=== PATIENT | female | born 1975 | race Caucasian/White ===

== ENCOUNTER 2017-01-14 05:54 | Day surgery (SDC) | payer MEDICAID ==
--- NOTE | 2016-12-16 20:35 | GHP ---
[f rep st] PREOP HISTORY AND PHYSICAL DATE OF ADMISSION: 01/14/2017 DATE OF PLANNED PROCEDURE: 01/14/2017 PLANNED PROCEDURE: Laparoscopic bilateral salpingo-oophorectomy. 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 Patient underwent bilateral mastectomy and breast reconstruction and chemo and radiation. She has been maintained on tamoxifen and did have some bleeding once her cycles did return. She was started on Depot-Lupron to put her i nto medical menopause, which she has been tolerating well. 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 Both are associated with in creased risk of breast and ovarian cancer. Because patient has been tolerating the Lupron well, she is electing to proceed with a laparoscopic bilateral salpingo-oophorectomy. We had extensive discu ssions about the pluses and minuses, including and performing a total laparoscopic hysterectomy at t he same time, because the medications that she is on can increase risk of uterine cancer; however, p joy wishes to proceed just with the laparoscopic BSO at this time. The patient has been properly consented and plans to proceed. PAST MEDICAL HISTORY: Stage IA breast carcinoma, PALB2 positive, BRIP positive, history of cervical dysplasia, chronic hypertension, gastroesophageal reflux disease. MEDICATIONS: Lupron, tamoxifen; which she will discontinue 2 weeks before surgery, olmesartan, tria mterene, hydrochlorothiazide. PAST SURGICAL HISTORY: Discectomy, bilateral mastectomy and breast reconstruction, LEEP excision of the cervix. ALLERGIES: IV contrast. SOCIAL HISTORY: The patient is . 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 She lives with her and their 2 children. She denies tobacco or drug use. She does drink alcohol very rarely. FAMILY MEDICAL HISTORY: Negative. PROGRAM SUPPORT CLERK HISTORY: Menarche age 12. Periods every 28 days, lasting 4-5 days. She is a 3, par a 2, 0-1-2. In 2004, she had a missed . She had a spontaneous , but did not requir e a D and C. In 12/2005, she had a spontaneous vaginal delivery of a 7-pound 1-ounce male at 40 weeks gestation. In 10/2011, she had a spontaneous vaginal delivery of a 6-pound 5-ounce infant . Patient does have a history of an abnormal Pap smear. She had a LEEP excision of her cervix. Ernesto reynaga has had 1 abnormal Pap smear since then, but all of her repeats have been normal since then. She has not had any additional procedures. REVIEW OF SYSTEMS: A 10-point review of systems is negative with exception of the above pertinent p ositives mentioned above. PHYSICAL EXAMINATION: VITAL SIGNS: Stable. Her weight is 141. GENERAL APPEARANCE: No acute dist ress. PSYCHIATRIC: Appropriate affect. Alert and oriented x3. NECK: Supple and mobile. There i s no thyromegaly. LUNGS: Clear to auscultation bilaterally. ABDOMEN: Soft, nondistended, nontend er. EXTREMITIES: Reveal no calf tenderness or edema. PELVIC: Reveals a mobile, midposition uteru s, with no adnexal masses. BREASTS: Status post bilateral breast reconstruction and mastectomy. ASSESSMENT AND PLAN: A 41-year-old, 3, para 2, 0-1-2, with genetic mutations increasing ris k of breast and ovarian cancer. She has already had bilateral mastectomy performed. She is desirin g to undergo laparoscopic bilateral salpingo-oophorectomy, is declining total laparoscopic hysterect henry at this time. Risks and benefits have been extensively reviewed with the patient and patient wells s been properly consented. /[id number]/MODL
[2017-01-14] MEDS ORDERED: LIDOCAINE 1% 5 ML SDV ONE (06:34)
[2017-01-14] MEDS ORDERED: SCOPOLAMINE HYDROBROMIDE 1.5 MG PATCH TD ONE (06:49)
[2017-01-14] MEDS ORDERED: PROPOFOL 200 MG/20 ML VIAL ONE (06:50)
[2017-01-14] MEDS ORDERED: HYDROmorphONE/DILAUDID 2 MG/ML INJ ONE (06:50)
[2017-01-14] MEDS ORDERED: ROCURONIUM 50 MG/5 ML VIAL ONE (06:50)
[2017-01-14] MEDS ORDERED: MIDAZOLAM 2 MG/2 ML VIAL IVP ONE (06:53)
--- NOTE | 2017-01-14 06:57 | PDANEPAE ---
ANE History of Present Illness Ms. Zuluaga is a 41 year old female with PMH of bilateral mastectomy, C6-C7 discetomy, and well controlled hypertension. She is otherwise healthy, NPO appropriate from 23:00 01/13/2017 and has a positive history of PONV. We discussed scopolamine patch preop, and ondansetron and decadron to prevent this. She denies URI last six weeks. She took her losartan and triameteren last 01/13/2017 in AM (exact time she is not sure of). Her HCG is negative. ANE Past Medical History - Cardiovascular History Hx Hypertension: Yes Hx Arrhythmias: No Hx Chest Pain: No Hx Coronary Artery / Peripheral Vascular Disease: No Hx CHF / Valvular Disease: No Hx Palpitations: No - Pulmonary History Hx COPD: No Hx Asthma/Reactive Airway Disease: No Hx Recent Upper Respiratory Infection: No Hx Oxygen in Use at Home: No - Neurologic History Hx Cerebrovascular Accident: No Hx Seizures: No Hx Dementia: No - Endocrine History Hx Diabetes: No - Renal History Hx Renal Disorders: No - Liver History Hx Hepatic Disorders: No - Neurological & Psychiatric Hx Hx Neurological and Psychiatric Disorders: No - Cancer History Hx Cancer: No - Congenital Disorder History Hx Congenital Disorders: No - GI History Hx Gastrointestinal Disorders: No - Chronic Pain History Chronic Pain: No ANE Review of Systems - Exercise capacity METS (RN): 6 METS ANE Patient History - Allergies Allergies/Adverse Reactions: Gadolinium-Containing Contrast Medi Allergy (Severe, Verified 06/29/16 11:25) Other-Enter Comments ibuprofen Allergy (Unknown, Verified 06/29/16 11:25) increases pt BP - Home Medications Home Medications: Cholecalciferol Vit D3 [Vitamin D3 (*)] 4,000 units PO DAILY 04/17/14 [Last Taken 04/18/14] Multivitamins [Multivitamin (*)] 1 each PO DAILY 04/17/14 [Last Taken 04/08/14] Olmesartan Medoxomil 40 mg DAILY 06/29/16 [Last Taken Unknown] Tamoxifen Citrate 1 tab DAILY 06/29/16 [Last Taken 12/30/16] Maxzide 75-50 mg Tab (*) 0.5 tab DAILY 01/01/17 [Last Taken Unknown] - NPO status NPO Since - Liquids (Date): 01/13/17 NPO Since - Liquids (Time): 23:30 NPO Since - Solids (Date): 01/13/17 NPO Since - Solids (Time): 20:40 - Smoking Hx Smoking Status: Never smoked - Family Anes Hx Family Hx Anesthesia Complications: NEG ANE Labs/Vital Signs - Vital Signs Blood Pressure: 124/92 Heart Rate: 67 Respiratory Rate: 16 O2 Sat (%): 97 Height: 152.4 cm Weight: 63.503 kg ANE Physical Exam - Airway Neck exam: FROM, decreased ROM Mallampati Score: Class 1 Mouth exam: poor dentition, small mouth opening - Pulmonary Pulmonary: no respiratory distress - Cardiovascular Cardiovascular: regular rate and rhythym - ASA Status ASA Status: II (limited posterior range of motion, will use glidescope ) ANE Anesthesia Plan Anesthesia Plan: general endotracheal anesthesia Urgent/Emergent Case: Butch williamson completed preop but documented later for safe timely pt care
[2017-01-14] MEDS ORDERED: SCOPOLAMINE HYDROBROMIDE 1.5 MG PATCH TD SCH (07:00)
[2017-01-14] MEDS ORDERED: BUPIVACAINE 0.25% 30 ML SDV ONE (07:02)
[2017-01-14] MEDS ORDERED: SURGIFLO MATRIX KIT WITH THROMBIN TP ONE (07:02)
[2017-01-14] MEDS ORDERED: fentaNYL 100 MCG/2 ML INJ ONE ×3 (07:03→15:14)
--- NOTE | 2017-01-14 07:10 | PDHPUP ---
History & Physical Update H&P update statement: This history and physical update is based on an assessment of the patient which was completed after admission or registration (within 24 hours), but prior to the surgery/procedure. H&P update: H&P reviewed & patient examined, no change in patient's condition since H&P completed
[2017-01-14] MEDS ORDERED: DEXAMETHASONE 4 MG/ML VIAL ONE (07:39)
[2017-01-14] MEDS ORDERED: ONDANSETRON 4 MG/2 ML VIAL ONE ×4 (07:39→14:05)
[2017-01-14] MEDS ORDERED: OXYCODONE/APAP 5/325 TAB PO PRN (07:59)
[2017-01-14] MEDS ORDERED: HYDROmorphONE/DILAUDID 1 MG/ML SYR IVP PRN (07:59)
[2017-01-14] MEDS ORDERED: MEPERIDINE 25 MG/ML SYR IVP PRN (07:59)
[2017-01-14] MEDS ORDERED: NALOXONE HCL 0.4 MG/ML INJ IVP PRN (07:59)
[2017-01-14] MEDS ORDERED: LR 500 ML IV PRN (07:59)
[2017-01-14] MEDS ORDERED: LABETALOL HCL 50 MG/10 ML SYR IVP PRN (07:59)
[2017-01-14] MEDS ORDERED: ONDANSETRON DISINTEGRATING 4 MG TAB PO PRN (08:42)
--- NOTE | 2017-01-14 08:42 | POSTOPPROG ---
Post Op Note Date of Operation: 01/14/17 Surgeon: Shante Gonzales Loan Review Officer: cameron read Anesthesia: GET(General Endotracheal) Pre-op Diagnosis: personal history breast cancer - postive genetic mutation Post-op Diagnosis: same Procedure: laparoscopic bilateral salpingoophrectomy Inf/Abcess present in the surg proc area at time of surgery?: No Depth: Superfical (Skin SQ) EBL: Minimal Specimen(s): bilateral ovaries and tubes
[2017-01-14] MEDS ORDERED: HYDROCODONE/APAP 5/325 TAB PO PRN (08:43)
[2017-01-14 09:23] VITALS: TEMP 97.5
[2017-01-14] MEDS: fentaNYL 100 MCG/2 ML INJ IVP PRN ×2 (09:40→12:18)
--- NOTE | 2017-01-14 09:46 | POSTANESTH ---
Post Anesthetic Evaluation Cardiovascular Status: Normal, Stable Respiratory Status: Normal, Stable Level of Consciousness/Mental Status: Moderately Sleepy Pain Control: Adequate, Prn Tx Ordered Nausea/Vomiting Control: Adequate, Prn Tx Ordered Complications Possibly Related to Anesthesia: None Noted
[2017-01-14] MEDS: ONDANSETRON 4 MG/2 ML VIAL IVP PRN ×3 (10:49→14:06)
[2017-01-14 14:04] VITALS: BP 123/86
[2017-01-14 14:08] VITALS: PULSE 81; RESP 16; O2SAT 98
--- NOTE | 2017-01-14 14:18 | GOP ---
[f rep st] OPERATIVE REPORT DATE OF OPERATION: 01/14/2017 SURGEON: Shante Gonzales DO DIRECTOR POST: Kirti Florentino MD ANESTHESIA: General endotracheal tube. PREOPERATIVE DIAGNOSIS: History of breast cancer with genetic mutation, increasing the risk of max st and ovarian cancer, status post bilateral mastectomy. POSTOPERATIVE DIAGNOSIS: History of breast cancer with genetic mutation, increasing the risk of valery ast and ovarian cancer, status post bilateral mastectomy. PROCEDURE PERFORMED: Laparoscopic bilateral salpingo-oophorectomy. FINDINGS: 1. Exam under anesthesia: Mobile mid position uterus with no adnexal masses. 2. Laparoscopic findings: Normal-appearing ovaries, uterus, and tubes. Unremarkable upper abdomen . 1. Unremarkable appendix. 3. SPECIMENS: Ovaries, uterus, and tubes. ESTIMATED BLOOD LOSS: 10 cc. INDICATIONS: Patient is a 41-year-old 3, para 2-0-1-2, who was diagnosed with stage IA1 valery ast cancer in 2013. She underwent a bilateral mastectomy and breast reconstruction and chemo and ra diation. She has been maintained on tamoxifen. She is BRCA gene negative, but had additional testi ng and was found to be PALB2 positive and BRIP positive, which are both associated with increased ri sk of breast and ovarian cancer. Recommendations have been made for patient to proceed with a bilat eral salpingo-oophorectomy. Risks and benefits of the procedure have been extensively reviewed with the patient. The patient has been on Lupron recently and has tolerated that well. The patient has been properly consented. DESCRIPTION OF PROCEDURE: Patient was taken to the operating room with intravenous fluids in place. She was then placed on the operating room table in the dorsal supine position, where general anest hesia was obtained. She was then repositioned into the dorsal lithotomy position with the Yellofin stirrups and prepped and draped in normal sterile fashion. Exam under anesthesia revealed a mobile mid position uterus with no adnexal masses. A speculum was then placed in the patient's vagina. An Allis clamp was used to grasp the anterior lip of the cervix. An acorn uterine manipulator was the n introduced. Attention was then turned to the patient's abdomen, where a 5 mm skin incision was th en made in the umbilicus. A 5 mm trocar was advanced into the patient's abdomen under direct visual ization. The abdomen was then insufflated with CO2 gas until an adequate pneumoperitoneum was achie mahad. The area underneath the trocar insertion site was found to be unremarkable. A 5 mm skin incis ion was then made in the patient's right lower quadrant and a 5 mm trocar was then advanced into the patient's abdomen. A 10 mm skin incision was then made in the patient's left lower quadrant and a 10 mm trocar was advanced into the patient's abdomen under direct visualization. The ovaries, uteru s, and tubes were unremarkable. The LigaSure was then used to perform a bilateral salpingo-oophorec jim. The EndoCatch bag was then introduced into the patient's abdomen. The specimen was then with drawn. The pedicles were found to be hemostatic. The ureters were noted to be remote from the oper ative site. The pelvis was irrigated. The fascial closure device was inserted and an 0 Vicryl sutu re was used to close the fascia. The gas was turned off and the CO2 gas was expressed from the rae ent's abdomen. Trocars were removed from the patient's abdomen. The skin was then closed with 4-0 Monocryl in a subcuticular fashion and Steri-Strips were applied to the patient's abdomen. The inst ruments were then removed from the patient's vagina. Cervix was noted to be hemostatic. Patient wa s returned to the dorsal supine position where she was easily awoken from anesthesia. Sponge, lap, and needle count was correct x2. Patient was transported to recovery room in stable condition. /[id number]/MODL
[2017-01-15] MEDS ORDERED: PATCH REMOVAL 1 EA PATCH TD SCH (06:53)
== END 2017-01-14 14:12 | disposition home or self-care (01) ==
LOC: FSGY 05:54
PROVIDERS: ATTEND Obstetrics & Gynecology
PROC: 0UB24ZZ Excision of Bilateral Ovaries, Percutaneous Endoscopic Approach (ICD-10-PCS; principal; 2017-01-14 07:15)
PROC: 0UB74ZZ Excision of Bilateral Fallopian Tubes, Percutaneous Endoscopic Approach (ICD-10-PCS; principal; 2017-01-14 07:15)
DX: Z15.02 Genetic susceptibility to malignant neoplasm of ovary (principal); Z85.3 Personal history of malignant neoplasm of breast; Z90.13 Acquired absence of bilateral breasts and nipples
CPT/HCPCS: J1100; J1170; J2250; J2405; J2704; J3010

== ENCOUNTER → 2017-04-14 | Outpatient (CLI) | payer MEDICAID | LOC: FIMAGING 08:26 | PROVIDERS: ATTEND Internal Medicine Hematology & Oncology | DX: Z13.820 Encounter for screening for osteoporosis (principal); M85.89 Other specified disorders of bone density and structure, multiple sites ==